=== PATIENT | female | born 1955 | race African-American/Black ===

== ENCOUNTER 2019-10-12 10:04 | Emergency (ER) | payer MEDICAID ==
[~2019-10-12] VITALS: Ht 147.3 cm; Wt 50.8 kg
[2019-10-12 10:16] VITALS: BP 157/101
[2019-10-12] MEDS ORDERED: Ketorolac 30mg Inj IV ONE (11:30)
--- NOTE | 2019-10-12 11:44 | Diagnostic Imaging Report ---
Indication: Chest pain. Trauma Technique: Continuous helical transaxial imaging of the chest was obtained from the thoracic inlet to the upper abdomen. No intravenous contrast was administered. Coronal 2-D reformats were also obtained. Total Dose length Product (DLP): 633.[address] Dose Index Volume (CTDIvol): 13.6 mGy Comparison: none Findings: Anterolaterally, there are acute fractures of the fourth, fifth and sixth ribs. Posteriorly, there are old fractures of the left sixth and seventh ribs. Some adjacent pleural thickening noted. There is no evidence of an acute fracture involving other osseous structures. Spinal alignment and configuration appears relatively normal. There is a scarring versus atelectasis involving the lung bases bilaterally. There is no pneumothorax or abnormal fluid collections within the chest. The upper abdomen is unremarkable as visualized. Aorta is calcified and ectatic. IMPRESSION: Acute left anterolateral rib fractures involving the fourth fifth and sixth ribs. No pneumothorax or other associated findings. Multiple old posterior rib fractures on the left. Posterior basilar scarring versus atelectasis bilaterally. Atherosclerotic vascular disease The CT scanner at [facility] is accredited by the [employer] and the scans are performed using dose optimization techniques as appropriate to a performed exam including Automatic Exposure control.
[2019-10-12 11:57] LABS: BASOPHILS % (AUTO) 1.3 % (0.0-2.0); EOSINOPHILS % (AUTO) 1.2 % (0.0-3.0); HEMATOCRIT 43.4 % (37.0-47.0); HEMOGLOBIN 15.1 G/DL (12.0-16.0); LYMPHOCYTES % (AUTO) 28.9 % (20.0-45.0); MEAN CORPUSCULAR VOLUME 91 FL (80-99); MONOCYTES % (AUTO) 8.8 % (1.0-10.0); NEUTROPHILS % (AUTO) 59.8 % (45.0-75.0); PLATELET COUNT 272 K/UL (150-450); RED BLOOD COUNT 4.78 M/UL (4.20-5.40); RED CELL DISTRIBUTION WIDTH 10.5 % (11.6-14.8); WHITE BLOOD COUNT 10.7 K/UL (4.8-10.8)
[2019-10-12 12:09] LABS: ANION GAP 9 mmol/L (5-15); BLOOD UREA NITROGEN 19 mg/dL (7-18); CALCIUM 9.7 MG/DL (8.5-10.1); CARBON DIOXIDE 27 MMOL/L (21-32); CHLORIDE 101 MMOL/L (98-107); CREATININE 0.9 MG/DL (0.55-1.30); POTASSIUM 3.7 MMOL/L (3.5-5.1); SODIUM 137 MMOL/L (136-145)
[2019-10-12 12:13] LABS: ALANINE AMINOTRANSFERASE 16 U/L (12-78); ALBUMIN 4.2 G/DL (3.4-5.0); ALBUMIN/GLOBULIN RATIO 0.9 (1.0-2.7); ALKALINE PHOSPHATASE 62 U/L (46-116); ASPARTATE AMINO TRANSFERASE 18 U/L (15-37); BILIRUBIN,TOTAL 0.7 MG/DL (0.2-1.0); CREATINE KINASE 103 U/L (26-308)
[2019-10-12] MEDS ORDERED: NORCO 5-325 TA1 EACH ORAL (13:28)
[2019-10-12] MEDS ORDERED: IBUPROFEN600 MG ORAL (13:28)
--- NOTE | 2019-10-12 13:41 | Emergency Room Report ---
History of Present Illness General Chief Complaint: Pain Source: Patient Present Illness HPI Patient presents with complaints of left-sided rib pain reports that she had a fall 3 days ago and is having pain to the region as described She does not feel short of breath however with inspirations she feels increased pain Denies any vomiting or diarrhea Patient reports that she was coming back from her patio and tripped over a chest that was on the ground Denies any other focal weakness patient does appear to have abrasions to the right Nasal area and reports that her son placed liquid glue bandaging Denies any neck pain denies any back pain Allergies: Coded Allergies: No Known Allergies (Unverified , 10/12/19) Patient History Past Medical History: see triage record Reviewed Nursing Documentation: PMH: Agreed; PSxH: Agreed Nursing Documentation-PMH Past Medical History: No History, Except For Hx Hypertension: Yes Review of Systems All Other Systems: negative except mentioned in HPI Physical Exam Vital Signs Date Time Temp Pulse Resp B/P (MAP) Pulse Ox O2 Delivery O2 Flow Rate FiO2 10/12/19 10:06 97.9 86 16 157/101 (119) 94 Room Air Sp02 EP Interpretation: reviewed, normal General Appearance: well appearing, no apparent distress Head: normocephalic Eyes: bilateral eye PERRL ENT: other - Abrasion over the right nasal bridge Neck: full range of motion, supple Respiratory: lungs clear, other - Tender on palpation over the mid clavicular mid rib cage on the left side no obvious ecchymosis Cardiovascular #1: regular rate, rhythm, no edema Gastrointestinal: non tender, soft Genitourinary: no CVA tenderness Musculoskeletal: back normal - Moving extremities equally Neurologic: alert, oriented, oriented x3 Psychiatric: normal inspection Skin: no rash Lymphatic: normal inspection Medical Decision Making Diagnostic Impression: Primary Impression: rib fractures ER Course Given the patient's history and presentation multiple differentials including but not limited to rib fractures, contusions pneumothorax entertained, CT imaging does reveal multilevel fractures On reevaluation patient does not show any signs of flail chest Blood work was also obtained To evaluate other anemia or process all within normal limits patient has done significantly better with acute intervention I discussed regarding outpatient attempt If patient is not improving will return for further inpatient care Labs Test 10/12/19 11:50 White Blood Count 10.7 K/UL (4.8-10.8) Red Blood Count 4.78 M/UL (4.20-5.40) Hemoglobin 15.1 G/DL (12.0-16.0) Hematocrit 43.4 % (37.0-47.0) Mean Corpuscular Volume 91 FL (80-99) Mean Corpuscular Hemoglobin 31.5 PG (27.0-31.0) Mean Corpuscular Hemoglobin Concent 34.7 G/DL (32.0-36.0) Red Cell Distribution Width 10.5 % (11.6-14.8) Platelet Count 272 K/UL (150-450) Mean Platelet Volume 6.5 FL (6.5-10.1) Neutrophils (%) (Auto) 59.8 % (45.0-75.0) Lymphocytes (%) (Auto) 28.9 % (20.0-45.0) Monocytes (%) (Auto) 8.8 % (1.0-10.0) Eosinophils (%) (Auto) 1.2 % (0.0-3.0) Basophils (%) (Auto) 1.3 % (0.0-2.0) Prothrombin Time 10.2 SEC (9.30-11.50) Prothromb Time International Ratio 1.0 (0.9-1.1) Activated Partial Thromboplast Time 26 SEC (23-33) Sodium Level 137 MMOL/L (136-145) Potassium Level 3.7 MMOL/L (3.5-5.1) Chloride Level 101 MMOL/L (98-107) Carbon Dioxide Level 27 MMOL/L (21-32) Anion Gap 9 mmol/L (5-15) Blood Urea Nitrogen 19 mg/dL (7-18) Creatinine 0.9 MG/DL (0.55-1.30) Estimat Glomerular Filtration Rate > 60 mL/min (>60) Glucose Level 96 MG/DL (74-106) Calcium Level 9.7 MG/DL (8.5-10.1) Total Bilirubin 0.7 MG/DL (0.2-1.0) Aspartate Amino Transf (AST/SGOT) 18 U/L (15-37) Alanine Aminotransferase (ALT/SGPT) 16 U/L (12-78) Alkaline Phosphatase 62 U/L (46-116) Total Creatine Kinase 103 U/L (26-308) Troponin I 0.000 ng/mL (0.000-0.056) Total Protein 9.0 G/DL (6.4-8.2) Albumin 4.2 G/DL (3.4-5.0) Globulin 4.8 g/dL Albumin/Globulin Ratio 0.9 (1.0-2.7) Lipase 106 U/L (73-393) EKG Diagnostic Results Rate: normal Rhythm: NSR ST Segments: other - Nonspecific ST and T wave changes LVH Rhythm Strip Diag. Results EP Interpretation: yes Rate: 77 Rhythm: NSR, no PVC's, no ectopy CT/MRI/US Diagnostic Results CT/MRI/US Diagnostic Results : Impression CT chestIMPRESSION: Acute left anterolateral rib fractures involving the fourth fifth and sixth ribs. No pneumothorax or other associated findings. Multiple old posterior rib fractures on the left. Posterior basilar scarring versus atelectasis bilaterally. Atherosclerotic vascular disease Last Vital Signs Date Time Temp Pulse Resp B/P (MAP) Pulse Ox O2 Delivery O2 Flow Rate FiO2 10/12/19 10:16 97.9 87 16 157/101 94 Room Air Status: improved Disposition: HOME, SELF-CARE Condition: Improved Scripts Hydrocodone Bit/Acetaminophen 5-325* (NORCO 5-325*) 1 Each Tablet 1 TAB ORAL Q8HR PRN for For Pain, #14 TAB 0 Refills Prov: Kat Petersen DO 10/12/19 Ibuprofen* (MOTRIN*) 600 Mg Tablet 600 MG ORAL Q8H PRN for For Pain, #20 TAB 0 Refills Prov: Kat Petersen DO 10/12/19 Referrals: NON PHYSICIAN (PCP) pmd Patient Instructions: Rib Fracture, [id number] Additional Instructions: Patient is provided with the discharge instructions notified to follow up with primary doctor in the next 2-3 days otherwise return to the er with any worsening symptoms. Please note that this report is being documented using [employer] technology. This can lead to erroneous entry secondary to incorrect interpretation by the dictating instrument. Kat Petersen DO Oct 12, 2019 13:41
[2019-10-12 13:45] VITALS: BP 152/98
== END 2019-10-12 13:45 | disposition home or self-care (01) ==
LOC: EMR 12:15
DX: S22.42XA Multiple fractures of ribs, left side, initial encounter for closed fracture (principal); W01.0XXA Fall on same level from slipping, tripping and stumbling without subsequent striking against object, initial encounter; Y93.01 Activity, walking, marching and hiking; Y92.018 Other place in single-family (private) house as the place of occurrence of the external cause; I10 Essential (primary) hypertension
CPT/HCPCS: 36415; 71250; 80053; 82550; 83690; 84484; 85025; 85610; 85730; 93005; 96374; J1885; Z7502; 99284